=== PATIENT | female | born 1990 ===

== ENCOUNTER 2016-10-09 18:12 | Emergency (ER) | payer SELFPAY ==
[2016-10-09 18:20] VITALS: BP 131/90; RESP 20; TEMP 98.5; O2SAT 98
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
[2016-10-09 20:05] VITALS: PULSE 83
== END 2016-10-09 20:05 | disposition home or self-care (01) ==
LOC: H.ER 18:12 → MERGE 18:12 → H.ER 20:05
DX: F43.20 Adjustment disorder, unspecified (principal)

== ENCOUNTER 2018-02-20 07:58 | Emergency (ER) | payer OTHER ==
[2018-02-20] MEDS ORDERED: Sodium Chloride 0.9% 1,000 ML IV STA (08:45)
--- NOTE | 2018-02-20 08:57 | ED PDOC ---
HPI: Abdomen Time Seen by Provider: 02/20/18 08:09 Chief Complaint (Nursing): Abdominal Pain Chief Complaint (Provider): Abdominal Pain History Per: Patient History/Exam Limitations: no limitations Onset/Duration Of Symptoms: Days (x3 weeks) Current Symptoms Are (Timing): Still Present Quality Of Discomfort: Pressure Associated Symptoms: Vomiting. denies: Fever, Chest Pain, Urinary Symptoms Additional Complaint(s): 27 year old female with a history of bulimia and anemia presents to the ED with intermittent, pressure like abdominal pain onset 3 weeks associated intermittent, nonbloody, and nonbilious vomiting. She has not seen a doctor for symptoms. Patient admits to drinking daily, she last drank at 1 am. At the time, she felt abdominal pain that has been progressively worsening. Her partner confirmed patients daily alcohol use. Patient had similar pain last year, for which she came to this ED. She has normal bowel movements, but denies fever or urinary problems. This morning, she developed body numbness. She states she is very anxious and worried about herself and work. Currently, patient reports num bness in both legs, but denies weakness, headache or chest pain. PMD: none provided Against Medical Advice - AMA Patient Left Against Medical Advice: The patient declines admission to the hospital and wishes to leave the Emergency Department. This action is against my medical advice. This decision was made with informed refusal. The patient was told that admission to the hospital is necessary. Explanation of the reasons why were discussed. The risks of leaving were explained to the patient and include, but are not limited to, worsening of known or currently unknown conditions, permanent disability and from undiagnosed or untreated conditions. The patient has the capacity to make this informed decision and understands my explanation of the current medical problem and risks of leaving. The patient voluntarily accepts these risks and signed an AMA form documenting our conversation. The patient was given the opportunity to ask questions and reconsider. The patient was encouraged to return to the Emergency Department at any time for further care. Past Medical History Reviewed: Historical Data, Nursing Documentation, Vital Signs Vital Signs: Last Vital Signs Temp 97 F L 02/20/18 08:08 Pulse 117 H 02/20/18 08:08 Resp 18 02/20/18 08:08 BP 102/75 02/20/18 08:08 Pulse Ox 97 02/20/18 08:08 - Medical History PMH: Anemia, Fractures Denies: Diabetes, Hepatitis, HIV, HTN, Seizures, Sexually Transmitted Disease Other PMH: bulimia - Surgical History Surgical History: Tonsillectomy - Family History Family History: States: Unknown Family Hx - Social History Alcohol: Other (yes, daily) - Immunization History Hx Tetanus Toxoid Vaccination: No Hx Influenza Vaccination: No Hx Pneumococcal Vaccination: No - Home Medications Home Medications: Ambulatory Orders Medication Instructions Recorded Famotidine [Pepcid] 1 tab PO BID #20 tab 11/07/13 Famotidine [Pepcid] 20 mg PO BID #30 tab 05/26/14 Ciprofloxacin HCl [Cipro] 500 mg PO BID #14 tablet 02/20/18 Ondansetron [Zofran Odt] 4 mg PO BID PRN #12 odt 02/20/18 - Allergies Allergies/Adverse Reactions: Allergies Allergy/AdvReac Type Severity Reaction Status Date / Time Penicillins Allergy RASH Verified 02/20/18 08:08 Review of Systems ROS Statement: Except As Marked, All Systems Reviewed And Found Negative Constitutional: Negative for: Fever Cardiovascular: Negative for: Chest Pain Gastrointestinal: Positive for: Vomiting, Abdominal Pain Genitourinary Female: Positive for: Other (no urinary problems) Neurological: Positive for: Numbness (in both legs). Negative for: Weakness, He adache Physical Exam - Reviewed Nursing Documentation Reviewed: Yes Vital Signs Reviewed: Yes - Physical Exam Appears: Positive for: Uncomfortable Head Exam: Positive for: ATRAUMATIC Skin: Positive for: Warm Eye Exam: Positive for: Normal appearance, EOMI, PERRL Cardiovascular/Chest: Positive for: Tachycardia, Other (normal rhythm ) Respiratory: Positive for: Normal Breath Sounds. Negative for: Respiratory Distress Gastrointestinal/Abdominal: Positive for: Normal Exam, Soft. Negative for: Tenderness, Distended Extremity: Positive for: Normal ROM. Negative for: Pedal Edema, Deformity Neurologic/Psych: Positive for: Alert, Oriented Comments: Patient vomited while provider performed examination. - Laboratory Results Result Diagrams: 02/20/18 08:45 02/20/18 08:45 - ECG O2 Sat by Pulse Oximetry: 97 (RA) Pulse Ox Interpretation: Normal - Progress Re-evaluation Time: 14:49 Condition: Re-examined, Improved Medical Decision Making Medical Decision Making: Time: 0844 Initial Impression: Abdominal pain, vomiting, and whole body paresthesias Differential diagnoses include but are not limited to: Alcohol withdrawals, elec trolyte abnormalities, gastritis pancreatitis UTI, or dehydration. Initial Plan: --EKG --CMP --Lipase --Magnesium --Urine preg --U dip --CBC with differentials --Prothrombin time --PTT --Pepcid 20 mg IVP --Zofran 4 mg PO --NS --Urine culture --UA Time: 852 --Urine preg negative but u dip positive for nitrites. Time: 908 --CT Abdomen and Pelvis Time: 924 --Hypokalemia and hypomagnesemia is significant in labs. Ordered potassium IV and magnesium IV. 12:18 Abdomen/Pelvis CT FINDINGS: LOWER THORAX: Small hiatal hernia. LIVER: Liver is enlarged measuring nearly 20 cm in CC dimension. Moderate to significant fatty hepatic infiltration. No obvious hepatic mass or collection. Portal and splenic veins opacified. GALLBLADDER AND BILE DUCTS: Gallbladder wall is slightly thickened and exhibits slightly pronounced contrast enhancement.. No obvious intraluminal gallbladder calculi. The possibility of acute acalculous cholecystitis cannot be excluded. Clinical correlation recommended. PANCREAS: Pancreatic head appears slightly boggy and exhibits the what are felt to represent some mild vague infiltration in the adjacent mesentery. Correlation with serum lipase amylase recommended to exclude acute pancreatitis. . SPLEEN: Spleen exhibits normal size and attenuation pattern without mass collection or calcification. ADRENALS: There are no adrenal lesions. KIDNEYS AND URETERS: The kidneys demonstrate symmetric nephrograms. No evidence of nephrolithiasis or hydronephrosis. No obvious renal masses or collections. BLADDER: Urinary bladder is incompletely distended which in part accounts for thick- walled appearance. Correlation with urinalysis recommended to exclude cystitis/UTI. REPRODUCTIVE: Unremarkable. APPENDIX: Normal-appearing the in best seen on axial image number [id number] and coronal image number [id number]. No periappendiceal inflammatory changes. BOWEL: Evaluation of the bowel is limited due to the lack of oral contrast material. The stomach is incompletely distended which in part accounts for thick-walled appearance. Rule out gastritis. Visualized loops of small bowel exhibit normal contour and caliber. No evidence of acute mechanical small bowel obstruction. The appendix is not seen with certainty on this study however no obvious evidence to suggest acute appendicitis. There is collapse of the cecum and ascending as well as proximal transverse colon at the level of the hepatic flexure with what may represent either of submucosal fat deposition. Edema would be less likely. Findings can be seen in sequela of chronic inflammation. Note also made of some very vague infiltration changes in the mesentery right a bdomen; rule out santi mesentery. PERITONEUM: See above. No fluid collection. No free air. Small fat containing umbilical hernia. LYMPH NODES: Unremarkable. No enlarged lymph nodes. VASCULATURE: No aortic atherosclerotic calcification/mural plaque. . No aortic aneurysm. BONES: Vertebral bodies exhibit normal stature without evidence of acute compression fractures no retropulsed fragments. No significant degenerative osteoarthritis spondylosis. There is straightening of the normal lumbar lordosis. OTHER FINDINGS: None. IMPRESSION: Mild hepatomegaly with significant fatty infiltration. Minimal gallbladder wall thickening with enhancement however no evidence of intraluminal gallbladder calculi; rule acalculous cholecystitis. Mild the wall thickening of/submucosal deposition of the cecum at ascending and proximal transverse colon. Rule out sequela of chronic inflammation. Note also made of some very vague infiltration changes in the mesentery right abdomen; rule out santi mesentery. There is also slight prominence of rugal folds; rule out gastritis. Pancreatic head appears slightly boggy and exhibits the what are felt to represent some mild vague infiltration in the adjacent mesentery. Correlation with serum lipase amylase recommended to exclude acute pancreatitis. Normal appendix. Wall thickening of the urinary bladder likely due to incomplete distention howev er correlation with urinalysis recommended to exclude cystitis. 14:00 Abdomen Ultrasound FINDINGS: LIVER: Measures 17 cm in length on this study however delivered a measured nearly [address] scan. In straits fatty infiltration.. No mass. No intrahepatic bile duct dilatation. GALLBLADDER: Unremarkable. No gallstones. No pericholecystic fluid collections or sonographic Olson sign COMMON BILE DUCT: Measures 3.0 mm. No stones. No dilatation. PANCREAS: Pancreas appears grossly unremarkable so far as can be seen.. No mass. No ductal dilatation. RIGHT KIDNEY: Measures 9.2 x 3.0 x 3.9 cm in length. Normal echogenicity. No calculus, mass, or hydronephrosis. AORTA: No aneurysmal dilatation. IVC: Unremarkable. OTHER FINDINGS: None . IMPRESSION: Hepatomegaly fatty infiltration. No evidence of cholelithiasis.. No evidence of pericholecystic fluid collections or sonographic Olson sign. 14:52 This patient is choosing to leave against medical advice. The EP has personally explained to the pt that choosing to do so may result in permanent bodily harm or . The EP discussed at great length that without further evaluation and monitoring there may be unforeseen circumstances and/or deterioration causing permanent bodily harm or as a result of their choice. The pt verbalized these risks back to the physician in laymans terms. The pt is alert, oriented, and shows the mental capacity to make clear decisions regarding the pts health care at this time. The pt continues to wish to leave against medical advice. In light of the pts decision to leave AMA, follow-up has been arranged and the pt is aware of the importance of following up as instructed. The pt has been advised that they should return to the ED immediately if they change their mind at any time, or if thier condition begins to change or worsen in any way. -------- --------- Scribe Attestation: Documented by Lashell Lopez, acting as a scribe for Obdulia Gillespie MD Provider Scribe Attestation: All medical record entries made by the Scribe were at my direction and personally dictated by me. I have reviewed the chart and agree that the record accurately reflects my personal performance of the history, physical exam, medical decision making, and the department course for this patient. I have also personally directed, reviewed, and agree with the discharge instructions and disposition. Disposition - Clinical Impression Clinical Impression: Abdominal pain in female, Pancreatitis, Alcohol abuse, Alcoholic hepatitis, UTI (urinary tract infection), Hypokalemia, Hypomagnesemia, Left against medical advice - Patient ED Disposition Is Patient to be Admitted: No Doctor Will See Patient In The: Office Counseled Patient/Family Regarding: Studies Performed, Diagnosis, Need For Followup - Disposition Referrals: Anthony Gr MD [Medical Doctor] - [facility] [Outside] Disposition: Against Medical Advice Disposition Time: 14:51 Condition: GOOD Additional Instructions: ANNY ESPINOZA, thank you for letting us take care of you today. Your provider was Obdulia Gillespie MD and you were treated for NUMBNESS/ABD PAIN. The emergency medical care you received today was directed at your acute symptoms. If you were prescribed any medication, please fill it and take as directed. It may take several days for your symptoms to resolve. Return to the Emergency Department if your symptoms worsen, do not improve, or if you have any other problems. Please contact your doctor or call one of the physicians/clinics you have been referred to that are listed on the Patient Visit Information form that is included in your discharge packet. Bring any paperwork you were given at discharge with you along with any medications you are taking to your follow up visit. Our treatment cannot replace ongoing medical care by a primary care provider outside of the emergency department. Thank you for allowing the [facility] team to be part of your care today. If you had an X-Ray or CT scan: A Radiologist will review the ED reading if any change in treatment is needed we will contact you. If you had a blood, urine, or wound culture: It will take several days for the results, if any change in treatment is needed we will contact you. If you had an STI test: It will take 48 hours for the results. Please call after 1 week if you have not heard back. Prescriptions: Ciprofloxacin HCl [Cipro] 500 mg PO BID #14 tablet Ondansetron [Zofran Odt] 4 mg PO BID PRN #12 odt PRN Reason: Nausea/Vomiting Instructions: Pancreatitis, Hypokalemia, Urinary Tract Infection, Adult (DC), Low Magnesium Level, Leaving Against Medical Advice Forms: [employer] (Ind[place]ian), [facility] ED School/Work Excuse
[2018-02-20 09:07] LABS: BASO # 0.1 K/uL (0.0-0.2); BASO % 1.2 % (0.0-2.0); EOS % 0.6 % (0.0-4.0); HEMOGLOBIN 10.3 g/dL (12.0-16.0); LYMPH # 2.2 K/uL (1.0-4.3); LYMPH % 38.3 % (20.0-40.0); MEAN CORPUSCULAR HEMOGLOBIN 38.2 pg (27.0-31.0); MEAN PLATELET VOLUME 9.1 fl (7.2-11.7); MONO # 0.6 K/uL (0.0-0.8); NEUT # 2.8 K/uL (1.8-7.0); NEUT % 48.9 % (50.0-75.0); NRBC % 0.1 % (0.0-0.0); RBC 2.7 Mil/uL (3.80-5.20); RED CELL DISTRIBUTION WIDTH 17.4 % (11.5-14.5); WHITE BLOOD COUNT 5.7 K/uL (4.8-10.8)
[2018-02-20 09:10] LABS: INR 1.2; PROTHROMBIN TIME 13.4 Seconds (9.8-13.1)
[2018-02-20 09:24] LABS: ALB/GLOB RATIO 0.8 (1.0-2.1); ALBUMIN 4.2 g/dL (3.5-5.0); ALT/SGPT 61 U/L (9-52); AST/SGOT 454 U/L (14-36); BLOOD UREA NITROGEN 11 mg/dl (7-17); CALCIUM 7.2 mg/dL (8.4-10.2); GFR NON-AFRICAN AMERICAN 53; LIPASE 411 U/L (23-300)
[2018-02-20] MEDS ORDERED: Magnesium Sulfate 2 gm/50 ml 2 GM/50 ML BAG IVPB ONE (09:25)
[2018-02-20] MEDS ORDERED: Potassium Chloride 20 mEq ER Tab PO ONE ×2 (09:26→09:34)
[2018-02-20] MEDS ORDERED: Magnesium Sulfate 2 gm/50 ml 2 GM/50 ML BAG ONE (09:34)
[2018-02-20] MEDS ORDERED: Potassium CL 10 MEQ/50 ML 50 ML ONE (09:34)
[2018-02-20] MEDS: Potassium CL 10 MEQ/50 ML 50 ML IVPB SCH ×3 (09:35→11:52)
[2018-02-20 09:36] LABS: SQUAMOUS EPITHIAL 21 /hpf (0-5); URINE BACTERIA MOD (<OCC); URINE BILIRUBIN MODERATE (NEGATIVE); URINE BLOOD SMALL (NEGATIVE); URINE CLARITY TURBID (Clear); URINE COLOR AMBER (YELLOW); URINE GLUCOSE (UA) NEG (Normal); URINE LEUKOCYTE ESTERASE NEG Leu/uL (Negative); URINE PROTEIN 100 mg/dL (NEGATIVE)
[2018-02-20] MEDS ORDERED: Sodium Chloride 0.9% 50 ML IV ONE (09:36)
[2018-02-20] MEDS ORDERED: Iohexol 300 100 ML IJ ONE (09:36)
[2018-02-20] MEDS ORDERED: Potassium CL 10 MEQ/50 ML 100 ML ONE (09:43)
[2018-02-20 10:01] LABS: GRANULAR CAST 0-2 /lpf (0-1)
[2018-02-20 10:02] LABS: EPITHELIAL CAST 0-1 /lpf (0-1); URINE RED BLOOD CELL CAST 0-1 /hpf (0-1)
[2018-02-20 11:19] VITALS: TEMP 98.6
--- NOTE | 2018-02-20 12:22 | CT ---
Date of service: 02/20/2018 PROCEDURE: CT Abdomen and Pelvis HISTORY: abdominal vomiting COMPARISON: None. TECHNIQUE: Contiguous axial images of the abdomen and pelvis performed following intravenous injection of approximately 95 cc of Omnipaque 300 contrast material. 2D sagittal and coronal reformats generated. Radiation dose: Total exam DLP = 206.65 mGy-cm. This CT exam was performed using one or more of the following dose reduction techniques: Automated exposure control, adjustment of the mA and/or kV according to patient size, and/or use of iterative reconstruction technique. FINDINGS: LOWER THORAX: Small hiatal hernia. LIVER: Liver is enlarged measuring nearly 20 cm in CC dimension. Moderate to significant fatty hepatic infiltration. No obvious hepatic mass or collection. Portal and splenic veins opacified. GALLBLADDER AND BILE DUCTS: Gallbladder wall is slightly thickened and exhibits slightly pronounced contrast enhancement.. No obvious intraluminal gallbladder calculi. The possibility of acute acalculous cholecystitis cannot be excluded. Clinical correlation recommended. PANCREAS: Pancreatic head appears slightly boggy and exhibits the what are felt to represent some mild vague infiltration in the adjacent mesentery. Correlation with serum lipase amylase recommended to exclude acute pancreatitis. . SPLEEN: Spleen exhibits normal size and attenuation pattern without mass collection or calcification. ADRENALS: There are no adrenal lesions. KIDNEYS AND URETERS: The kidneys demonstrate symmetric nephrograms. No evidence of nephrolithiasis or hydronephrosis. No obvious renal masses or collections. BLADDER: Urinary bladder is incompletely distended which in part accounts for thick-walled appearance. Correlation with urinalysis recommended to exclude cystitis/UTI. REPRODUCTIVE: Unremarkable. APPENDIX: Normal-appearing the in best seen on axial image number [id number] and coronal image number [id number]. No periappendiceal inflammatory changes. BOWEL: Evaluation of the bowel is limited due to the lack of oral contrast material. The stomach is incompletely distended which in part accounts for thick-walled appearance. Rule out gastritis. Visualized loops of small bowel exhibit normal contour and caliber. No evidence of acute mechanical small bowel obstruction. The appendix is not seen with certainty on this study however no obvious evidence to suggest acute appendicitis. There is collapse of the cecum and ascending as well as proximal transverse colon at the level of the hepatic flexure with what may represent either of submucosal fat deposition. Edema would be less likely. Findings can be seen in sequela of chronic inflammation. Note also made of some very vague infiltration changes in the mesentery right abdomen; rule out santi mesentery. PERITONEUM: See above. No fluid collection. No free air. Small fat containing umbilical hernia. LYMPH NODES: Unremarkable. No enlarged lymph nodes. VASCULATURE: No aortic atherosclerotic calcification/mural plaque. . No aortic aneurysm. BONES: Vertebral bodies exhibit normal stature without evidence of acute compression fractures no retropulsed fragments. No significant degenerative osteoarthritis spondylosis. There is straightening of the normal lumbar lordosis. OTHER FINDINGS: None. IMPRESSION: Mild hepatomegaly with significant fatty infiltration. Minimal gallbladder wall thickening with enhancement however no evidence of intraluminal gallbladder calculi; rule acalculous cholecystitis. Mild the wall thickening of/submucosal deposition of the cecum at ascending and proximal transverse colon. Rule out sequela of chronic inflammation. Note also made of some very vague infiltration changes in the mesentery right abdomen; rule out santi mesentery. There is also slight prominence of rugal folds; rule out gastritis. Pancreatic head appears slightly boggy and exhibits the what are felt to represent some mild vague infiltration in the adjacent mesentery. Correlation with serum lipase amylase recommended to exclude acute pancreatitis. Normal appendix. Wall thickening of the urinary bladder likely due to incomplete distention however correlation with urinalysis recommended to exclude cystitis.
[2018-02-20] MEDS ORDERED: Lactated Ringer's 1,000 ML IV SCH (12:30)
[2018-02-20] MEDS ORDERED: cefTRIAXone (Rocephin) 1 gm Inj ONE (13:29)
[2018-02-20 13:32] VITALS: BP 113/76; PULSE 93; RESP 16
[2018-02-20 13:37] LABS: VENOUS BLOOD GAS BASE EXCESS 17.2 mmol/L (0.0-2.0); VENOUS BLOOD GAS PCO2 59 mmHg (40-60); VENOUS BLOOD GAS PO2 16 mm/Hg (30-55); VENOUS BLOOD PH 7.48 (7.32-7.43)
[2018-02-20 13:43] LABS: MEAN CELL VOLUME 112.3 fl (81.0-99.0)
--- NOTE | 2018-02-20 14:03 | US ---
Date of service: 02/20/2018 HISTORY: vomiting pancreatitis COMPARISON: Correlation made with prior CT scan of the abdomen pelvis obtained earlier same day. TECHNIQUE: Sonographic evaluation of the right upper quadrant of the abdomen. FINDINGS: LIVER: Measures 17 cm in length on this study however delivered a measured nearly [address] scan. In straits fatty infiltration.. No mass. No intrahepatic bile duct dilatation. GALLBLADDER: Unremarkable. No gallstones. No pericholecystic fluid collections or sonographic Olson sign COMMON BILE DUCT: Measures 3.0 mm. No stones. No dilatation. PANCREAS: Pancreas appears grossly unremarkable so far as can be seen.. No mass. No ductal dilatation. RIGHT KIDNEY: Measures 9.2 x 3.0 x 3.9 cm in length. Normal echogenicity. No calculus, mass, or hydronephrosis. AORTA: No aneurysmal dilatation. IVC: Unremarkable. OTHER FINDINGS: None . IMPRESSION: Hepatomegaly fatty infiltration. No evidence of cholelithiasis.. No evidence of pericholecystic fluid collections or sonographic Olson sign.
[2018-02-20 14:12] VITALS: O2SAT 97
--- NOTE | 2018-02-21 03:01 | CARD ---
APPROVED REPORT Date of service: 02/20/2018 EKG Measurement Heart [id number] <Conclusion> Normal sinus rhythm Nonspecific ST abnormality Prolonged QT Abnormal ECG
== END 2018-02-20 15:55 | disposition left against medical advice (07) ==
LOC: H.ER 07:58
DX: R10.2 Pelvic and perineal pain (principal); K85.90 Acute pancreatitis without necrosis or infection, unspecified; F10.10 Alcohol abuse, uncomplicated; N39.0 Urinary tract infection, site not specified; E87.6 Hypokalemia; E83.42 Hypomagnesemia; Z88.0 Allergy status to penicillin; Z79.899 Other long term (current) drug therapy
CPT/HCPCS: 74177; 76705; 80053; 81003; 81025; 82803; 83690; 83735; 85025; 85610; 85730; 87040; 87086; 93005; 96374; 96375; 99285; J0696; J2405; J3480; J7030; J7120; Q9967

== ENCOUNTER 2018-06-27 15:26 | Emergency (ER) | payer OTHER ==
[2018-06-27 15:50] VITALS: BP 116/82; PULSE 89; RESP 18; TEMP 98.4; O2SAT 100
--- NOTE | 2018-06-27 16:31 | ED PDOC ---
HPI: Head Injury Time Seen by Provider: 06/27/18 16:20 Chief Complaint (Nursing): Trauma Chief Complaint (Provider): Head injury History Per: Patient History/Exam Limitations: no limitations Injury Occurred (Timing): Days Ago: (1x) Onset/Duration Of Symptoms: Days (2x) Patient States: Fell Striking Head Severity: Moderate Additional Complaint(s): 28 year old female with no pertinent past medical history presents to the ED for an evaluation of a head injury that occurred last night. Patient states that last night she hit her head while drinking alcohol. Patient denies having loss of consciousness. Patient states that she woke up this morning and noted a scab to her head, showered and washed it off, and has had uncontrolled bleeding since then. Patient denies having nausea, vomiting, headaches, and dizziness. Tetanus not up to date. PMD: None provided. Past Medical History Reviewed: Historical Data, Nursing Documentation, Vital Signs Vital Signs: Last Vital Signs Temp 98.4 F 06/27/18 15:48 Pulse 89 06/27/18 15:48 Resp 18 06/27/18 15:48 BP 116/82 06/27/18 15:48 Pulse Ox 100 06/27/18 15:48 JADE Report Viewed: Yes - Medical History PMH: Anemia, Fractures Denies: Diabetes, Hepatitis, HIV, HTN, Seizures, Sexually Transmitted Disease - Surgical History Surgical History: Tonsillectomy - Family History Family History: States: No Known Family Hx - Social History Alcohol: Social Drugs: Denies - Immunization History Hx Tetanus Toxoid Vaccination: No Hx Influenza Vaccination: No Hx Pneumococcal Vaccination: No - Home Medications Home Medications: Ambulatory Orders Medication Instructions Recorded Famotidine [Pepcid] 1 tab PO BID #20 tab 11/07/13 Famotidine [Pepcid] 20 mg PO BID #30 tab 05/26/14 Ciprofloxacin HCl [Cipro] 500 mg PO BID #14 tablet 02/20/18 Ondansetron [Zofran Odt] 4 mg PO BID PRN #12 odt 02/20/18 - Allergies Allergies/Adverse Reactions: Allergies Allergy/AdvReac Type Severity Reaction Status Date / Time Penicillins Allergy RASH Verified 06/27/18 15:47 Review of Systems ROS Statement: Except As Marked, All Systems Reviewed And Found Negative Gastrointestinal: Negative for: Nausea, Vomiting Neurological: Positive for: Other (head injury, uncontrolled bleeding). Negative for: Headache, Dizziness Physical Exam - Reviewed Nursing Documentation Reviewed: Yes Vital Signs Reviewed: Yes - Physical Exam Appears: Positive for: Well, Non-toxic, No Acute Distress Head Exam: Positive for: NORMOCEPHALIC. Negative for: ATRAUMATIC (2 cm laceration to left parietal region of head) Skin: Positive for: Normal Color, Warm, Dry Eye Exam: Positive for: Normal appearance Cardiovascular/Chest: Positive for: Regular Rate, Rhythm Respiratory: Positive for: Normal Breath Sounds Neurologic/Psych: Positive for: Alert, Oriented (3x) - ECG O2 Sat by Pulse Oximetry: 100 (RA) Pulse Ox Interpretation: Normal Medical Decision Making Medical Decision Makin:20 Initial impression: 28 year old female with a head injury Initial plan: * CT head w/o contrast * adacel (10-64 yrs) 0.5 ml IM * reevaluation Scribe Attestation: Documented byDiana Mireles, acting as a scribe for Leopoldo Gill PA-C. Provider Scribe Attestation: All medical record entries made by the Scribe were at my direction and personally dictated by me. I have reviewed the chart and agree that the record accurately reflects my personal performance of the history, physical exam, medical decision making, and the department course for this patient. I have also personally directed, reviewed, and agree with the discharge instructions and disposition. Disposition - Clinical Impression Clinical Impression: Head injury, Scalp laceration - Patient ED Disposition Is Patient to be Admitted: No - Disposition Disposition: Routine/Home Disposition Time: 18:04 Condition: FAIR Additional Instructions: RETURN TO ED/URGENT CARE OR PMD TO REMOVE SUTURES 7-10DAYS Instructions: Laceration Repair With [place] (DC), Closed Head Injury (DC) Forms: [facility] ED School/Work Excuse
[2018-06-27] MEDS ORDERED: Lidocaine 2% w Epi 1:100,000 Inj IJ ONE (16:32)
[2018-06-27] MEDS ORDERED: Tdap Vaccine 0.5 ml Vial (10-64 yrs) IM ONE (16:33)
--- NOTE | 2018-06-27 17:54 | CT ---
Date of service: 06/27/2018 PROCEDURE: CT HEAD WITHOUT CONTRAST. HISTORY: head injury COMPARISON: None available. TECHNIQUE: Axial computed tomography images were obtained through the head/brain without intravenous contrast. Supplemental Coronal and Sagittal projections created and reviewed. Radiation dose: Total exam DLP = 760.47 mGy-cm. This CT exam was performed using one or more of the following dose reduction techniques: Automated exposure control, adjustment of the mA and/or kV according to patient size, and/or use of iterative reconstruction technique. FINDINGS: HEMORRHAGE: No intracranial hemorrhage. BRAIN: No mass effect or edema. No atrophy or chronic microvascular ischemic changes. VENTRICLES: Unremarkable. No hydrocephalus. CALVARIUM: Unremarkable. PARANASAL SINUSES: Unremarkable as visualized. No significant inflammatory changes. MASTOID AIR CELLS: Unremarkable as visualized. No inflammatory changes. OTHER FINDINGS: Evidence of laceration posterior left parietal region. No adjacent, underlying calvarial or intracranial abnormalities. The findings are confined to the cutaneous and subcutaneous tissues. IMPRESSION: No acute intracranial abnormalities. No significant findings to account for the clinical presentation. Cutaneous and subcutaneous findings scalp in the region of the posterior left parietal occipital area. No adjacent calvarial or intracranial abnormalities.
== END 2018-06-27 18:08 | disposition home or self-care (01) ==
LOC: H.ER 15:26
DX: S09.90XA Unspecified injury of head, initial encounter (principal); S01.01XA Laceration without foreign body of scalp, initial encounter; Z88.0 Allergy status to penicillin; Z23 Encounter for immunization; W19.XXXA Unspecified fall, initial encounter

== ENCOUNTER 2018-07-10 10:25 | Emergency (ER) | payer OTHER ==
[2018-07-10 10:38] VITALS: BMI 18.3
[2018-07-10 10:41] VITALS: O2SAT 98
--- NOTE | 2018-07-10 10:51 | ED PDOC ---
HPI: General Adult Time Seen by Provider: 07/10/18 10:47 Chief Complaint (Nursing): Suture/Staple Removal Chief Complaint (Provider): staple removal History Per: Patient (28 y/o here for staple removal. No complaints.) Past Medical History Reviewed: Historical Data, Nursing Documentation, Vital Signs Vital Signs: Last Vital Signs Temp 97 F L 07/10/18 10:37 Pulse 95 H 07/10/18 10:37 Resp BP 115/83 07/10/18 10:37 Pulse Ox 98 07/10/18 10:39 - Medical History PMH: Anemia, Fractures Denies: Diabetes, Hepatitis, HIV, HTN, Seizures, Sexually Transmitted Disease - Surgical History Surgical History: Tonsillectomy - Family History Family History: States: Unknown Family Hx - Immunization History Hx Tetanus Toxoid Vaccination: No Hx Influenza Vaccination: No Hx Pneumococcal Vaccination: No - Home Medications Home Medications: Ambulatory Orders Medication Instructions Recorded Famotidine [Pepcid] 1 tab PO BID #20 tab 11/07/13 Famotidine [Pepcid] 20 mg PO BID #30 tab 05/26/14 Ciprofloxacin HCl [Cipro] 500 mg PO BID #14 tablet 02/20/18 Ondansetron [Zofran Odt] 4 mg PO BID PRN #12 odt 02/20/18 - Allergies Allergies/Adverse Reactions: Allergies Allergy/AdvReac Type Severity Reaction Status Date / Time Penicillins Allergy RASH Verified 07/10/18 10:39 Review of Systems ROS Statement: Except As Marked, All Systems Reviewed And Found Negative Physical Exam - Reviewed Nursing Documentation Reviewed: Yes Vital Signs Reviewed: Yes - Physical Exam Appears: Positive for: Well, Non-toxic, No Acute Distress Head Exam: Positive for: NORMAL INSPECTION, NORMOCEPHALIC. Negative for: ATRAUMATIC (1.0 cm laceration 3 cassy intact; no erythema) Skin: Positive for: Normal Color, Warm, DRY Eye Exam: Positive for: EOMI, Normal appearance, PERRL ENT: Positive for: Normal ENT Inspection Neck: Positive for: Normal, Painless ROM Cardiovascular/Chest: Positive for: Regular Rate, Rhythm Respiratory: Positive for: CNT, Normal Breath Sounds Gastrointestinal/Abdominal: Positive for: Normal Exam, Soft Back: Positive for: Normal Inspection Extremity: Positive for: Normal ROM Neurological/Psych: Positive for: Awake, Alert, Normal Tone - ECG O2 Sat by Pulse Oximetry: 98 - Progress ED Course And Treament: VERBAL CONSENT PRIOR TO PROCEDURE THREE CASSY REMOVED WITHOUT DIFFICULTY. Disposition - Clinical Impression Clinical Impression: Removal of cassy - Patient ED Disposition Is Patient to be Admitted: No - Disposition Disposition: Routine/Home Disposition Time: 10:51 Condition: FAIR Instructions: Staple Removal
[2018-07-10 11:06] VITALS: BP 118/78; PULSE 78; RESP 20; TEMP 98.6
== END 2018-07-10 11:06 | disposition home or self-care (01) ==
LOC: H.ER 10:25
DX: Z48.02 Encounter for removal of sutures (principal); Z88.0 Allergy status to penicillin